=== PATIENT | female | born 1995 | race African-American/Black ===

== ENCOUNTER 2017-11-13 10:03 | Emergency (ER) | payer MEDICAID, OTHER ==
[2017-11-13] MEDS ORDERED: SODIUM CHLORIDE 0.9% FLUSH 10 ML FLUSH IVF (10:30)
[2017-11-13] MEDS: SODIUM CHLOR 0.9% 1000 ML INJ 1,000 ML IV (10:31)
[2017-11-13 10:41] LABS: AUTOMATED NEUTROPHIL # 3.9 TH/MM3 (1.8-7.7); BASOPHIL % 0.4 % (0.0-2.0); EOSINOPHIL # 0.1 TH/MM3 (0-0.4); EOSINOPHIL % 1.1 % (0.0-4.0); HEMATOCRIT 38.2 % (35.0-46.0); HEMO FLAGS DIFF FINAL; HEMOGLOBIN 12.5 GM/DL (11.6-15.3); LYMPHOCYTE # 2.2 TH/MM3 (1.0-4.8); MEAN CELL VOLUME 77.7 FL (80.0-100.0); MEAN CORPUSCULAR HEMOGLOBIN 25.5 PG (27.0-34.0); MEAN CORPUSCULAR HGB CONC 32.8 % (32.0-36.0); MEAN PLATELET VOLUME 9.1 FL (7.0-11.0); MONO % 6.7 % (0.0-8.0); MONOCYTE # 0.5 TH/MM3 (0-0.9); NEUT % 58.8 % (16.0-70.0); PLATELET COUNT 286 TH/MM3 (150-450); RED BLOOD COUNT 4.92 MIL/MM3 (4.00-5.30); RED CELL DISTRIBUTION WIDTH 15.5 % (11.6-17.2); WHITE BLOOD COUNT 6.7 TH/MM3 (4.0-11.0)
[2017-11-13 10:55] LABS: ALBUMIN 3.7 GM/DL (3.4-5.0); ALT (GPT) 28 U/L (10-53); ANION GAP 6 MEQ/L (5-15); AST (GOT) 19 U/L (15-37); BICARBONATE 26.6 MEQ/L (21.0-32.0); BLOOD UREA NITROGEN 8 MG/DL (7-18); CHLORIDE 104 MEQ/L (98-107); CREATININE 0.82 MG/DL (0.50-1.00); GLOMERULAR FILTRATION RATE 105 ML/MIN (>89); GLUCOSE,RANDOM 98 MG/DL (74-106); POTASSIUM 3.4 MEQ/L (3.5-5.1); SODIUM (NA) 137 MEQ/L (136-145)
[2017-11-13 10:57] LABS: ALKALINE PHOSPHATASE 92 U/L (45-117); TOTAL BILIRUBIN ADULT 0.3 MG/DL (0.2-1.0); TOTAL PROTEIN 8.7 GM/DL (6.4-8.2)
[2017-11-13 11:11] LABS: D-DIMER 0.58 MG/L FEU (0.00-0.50)
[2017-11-13] MEDS: IOHEXOL 350 MG/ML 10 ML VIAL (for RAD DIAG) IVCONTRAST (11:40)
[2017-11-13 12:41] LABS: TROPONIN I LESS THAN 0.02 NG/ML (0.02-0.05)
== END 2017-11-13 13:25 | disposition home or self-care (01) ==
LOC: NEPC 10:03
DX: R55 Syncope and collapse (principal); R06.02 Shortness of breath; R00.0 Tachycardia, unspecified; R94.31 Abnormal electrocardiogram [ECG] [EKG]; Z79.899 Other long term (current) drug therapy
CPT/HCPCS: 71045; 71275; 80053; 84443; 84484; 84703; 85025; 85379; 93005; 96360; 99285-25

== ENCOUNTER 2018-01-03 07:23 | Emergency (ER) | payer MEDICAID ==
[~2018-01-03] VITALS: Ht 162.6 cm; Wt 90.0 kg
[~2018-01-03 07:23] MED LIST: AVIATAB PO; FERRTAB2 PO
[2018-01-03 07:37] VITALS: BP 178/100; PULSE 102; RESP 18; TEMP 99.1; O2SAT 100
[2018-01-03] MEDS ORDERED: PENI500T PO (09:41)
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
== END 2018-01-03 09:50 | disposition home or self-care (01) ==
LOC: NEPK 07:23
DX: J03.90 Acute tonsillitis, unspecified (principal)
CPT/HCPCS: 86403; 87081; 87804; 99283